=== PATIENT | female | born 2000 | race Caucasian/White ===

== ENCOUNTER 2024-06-19 06:17 | Day surgery (SDC) | payer OTHER, SELFPAY ==
[2024-06-19 09:33] VITALS: BMI 24.7
[2024-06-19 09:34] VITALS: BMI 24.7
[2024-06-19 09:35] VITALS: BP 120/70
[2024-06-19] MEDS: NORMOSOL-R/PLASMALYTE-A 1000 IV (10:20)
[2024-06-19 11:00] VITALS: BP 115/79
[2024-06-19 11:15] VITALS: BP 112/73
[2024-06-19 11:30] VITALS: BP 120/66
[2024-06-19 11:45] VITALS: BP 120/67
== END 2024-06-19 11:57 | disposition home or self-care (01) ==
LOC: SDS 06:17
PROVIDERS: ATTENDING PHYSICIAN Otolaryngology
DX: L91.0 Hypertrophic scar (principal)
CPT/HCPCS: 11442; 88304; 88305; 88313; 88341; 88342